=== PATIENT | male | born 1990 | race Caucasian/White ===

== ENCOUNTER 2024-05-11 11:13 | Emergency (ER) | payer MEDICAID, SELFPAY ==
--- NOTE | 2024-05-11 11:16 | XR_ITS ---
WS: [id number] Exam: XR ribs LT mn 3V w CXR1V [id number] Date/Time of Exam: 05/11/2024 11:22 AM Reason For Exam: fall No acute LEFT rib fracture. No pleural or pulmonary reactive changes are noted. The lungs are bilaterally clear and fully expanded. Normal cardiomediastinal silhouette. XR/XR ribs LT mn 3V w CXR1V [id number] IMPRESSION: 1. No acute LEFT rib fracture. 2. No acute cardiopulmonary process noted.
[2024-05-11 12:16] VITALS: BP 133/107; PULSE 87; RESP 16; TEMP 36.8; O2SAT 98; BMI 28.0
--- NOTE | 2024-05-11 12:19 | XRR_ITS ---
PROCEDURE INFORMATION: Exam: XR Left Shoulder Exam date and time: 05/11/2024 12:38 PM Age: 33 years old Clinical indication: Injury or trauma; Fall; Blunt trauma (contusions or hematomas); Shoulder; Left TECHNIQUE: Imaging protocol: Radiologic exam of the left shoulder. Views: 2 or more views. COMPARISON: CR XR ribs LT mn 3V w CXR1V [id number] 05/11/2024 11:36 AM FINDINGS: Bones/joints: Mild osteoarthritis of the left acromioclavicular joint. No acute fracture or dislocation. Soft tissues: Normal. XR/XR shoulder LT min 2V* [id number] IMPRESSION: No acute fracture or dislocation.
[2024-05-11 12:20] VITALS: PULSE 85; O2SAT 96
--- NOTE | 2024-05-11 12:20 | ED_ITS ---
HPI - Fall General: Chief Complaint: Fall Stated Complaint: fall/left side rib pain Time Seen by Provider: 05/11/24 11:36 Source: patient Mode of arrival: ambulatory Limitations: no limitations History of Present Illness: 33-year-old male who states that he is a t work he slipped on ice and fell onto his left side. He states happened just prior arrival states he is having left shoulder pain also some left-sided rib pain and upper back pain. States pain sharp in nature rates it a 7 out of 10 states is worse with palpation and deep breaths. He denies hitting his head denies any neck pain. Associated symptoms-after fall: Reports chest pain; Denies abdominal pain, headache(s) or neck pain Related Data Previous Rx's ?Medication ?Instructions ?Recorded naproxen 500 mg tablet (Naprosyn) 500 mg PO BID PRN pa in #20 tabs 05/11/24 Allergies Allergy/AdvReac Type Severity Reaction Status Date / Time No Known Allergies Allergy Verified 05/11/24 12:19 Review of Systems Const: Denies: fever(s), chills, body aches or change in appetite ENMT: Denies: throat pain or dental pain Card: Reports: chest pain Resp: Denies: dyspnea GI: Denies: abdominal pain, nausea, vomiting or diarrhea Musc: Reports: back pain and extremity pain; Denies: neck pain Skin/Breast: Denies: rash Neuro: Denies: headache(s) Physical Exam Const: COMMON NORMALS: no acute distress, patient oriented x3 and healthy appearing HENMT: COMMON NORMALS: normocephalic and atraumatic HEAD & SCALP: normocephalic and atraumatic Eye: COMMON NORMALS: conjunctivae normal CONJUNCTIVA: Yes conjunctivae normal Neck/C-Spine: COMMON NORMALS: full ROM and supple Chest: COMMONS NORMALS: normal inspection of the chest OTHER: Tenderness noted over left lateral chest Resp: COMMON NORMALS: normal respiratory effort, No retractions, No use of accessory muscles and clear to auscultation bilaterally AUSCULTATION: clear to auscultation bilaterally Cardio: COMMON NORMALS: regular rate, regular rhythm and No murmurs present (Cardio) RATE: regular rate RHYTHM: regular rhythm GI: COMMON NORMALS: Normal to inspection, nondistended, normoactive bowel sounds present, Soft to palpation, non-tender and no masses PALPATION: Yes Soft to palpation Extremity: COMMON NORMALS: full ROM NARRATIVE EXTREMITY EXAM: Tenderness to left shoulder no obvious deformity Neuro: COMMON NORMALS: patient oriented x3, moves all extremities and no focal motor deficits Psych: COMMON NORMALS: mental status grossly normal, Normal thought process present and cooperative THOUGHT PROCESS: Normal thought process present Skin: COMMON NORMALS: no rashes or lesions noted and no wounds GENERAL SKIN EXAM: no rashes or lesions noted Course Vital Signs: Vital signs: Vital Signs Temperature 98.3 F 05/11/24 12:16 Pulse Rate 85 05/11/24 12:20 Respiratory Rate 16 05/11/24 12:16 Blood Pressure 133/107 05/11/24 12:16 Pulse Oximetry 96 05/11/24 12:20 Oxygen Delivery Me thod Room Air 05/11/24 12:20 MDM - Fall Medical Decision Making Patient presents here with chest wall contusion along with shoulder contusion from a fall imaging here shows no fracture she is stable for discharge follow-up PCP return if worsening he understands agrees to plan. Medical Records I reviewed the patient's medical records. Lab Data Radiology Impressions Ribs X-Ray 05/11/24 11:16 IMPRESSION: 1. No acute LEFT rib fracture. 2. No acute cardiopulmonary process noted. Thoracic Spine X-Ray 05/11/24 12:20 IMPRESSION: 1. Negative T-spine study. All radiology interpretation(s) finalized by discharge Discharge Plan Discharge Patient Disposition: Home Clinical Impression: Fall, Chest wall contusion Condition: Stable Prescriptions: New naproxen [Naprosyn] 500 mg tablet 500 mg PO BID PRN (Reason: pain) Qty: 20 0RF Discharge Orders: Discharge ED (Routine); Ordered 05/11/24 Ordered By: Viki Dozier Discharge Diet: Advance as tolerated Discharge Activity: Resume usual activity Patient Instructions: Chest Contusion (ED) Print Language: Tamazight Coding Level of Care Code ED Reliability Technologist for Jeremy Alvarez
--- NOTE | 2024-05-11 12:20 | XR_ITS ---
WS: [id number] Exam: XR thoracic spine 3V* [id number] Date/Time of Exam: 05/11/2024 1:02 PM Reason For Exam: fall No acute fracture. Disc spaces are preserved. No scoliosis. Normal paraspinal soft tissues. XR/XR thoracic spine 3V* [id number] IMPRESSION: 1. Negative T-spine study.
[2024-05-11] MEDS: HYDROcodone-acetaminophen 7.5-325 mg Tablet 1 TAB PO (12:22)
== END 2024-05-11 13:49 | disposition home or self-care (01) ==
PROVIDERS: Emergency Provider Emergency Medicine
DX: S20.219A Contusion of unspecified front wall of thorax, initial encounter (principal); W00.0XXA Fall on same level due to ice and snow, initial encounter
CPT/HCPCS: 71101; 72072; 73030; 99284

== ENCOUNTER 2024-05-16 17:24 | Emergency (ER) | payer MEDICAID, SELFPAY ==
[2024-05-16 17:33] VITALS: BP 123/61; PULSE 95; RESP 14; TEMP 36.7; O2SAT 98; BMI 28.3
--- NOTE | 2024-05-16 17:52 | ED_ITS ---
HPI - Back Pain/Injury General: Chief Complaint: Back Pain/Injury Stated Complaint: sever lower back pain Time Seen by Provider: 05/16/24 17:29 Source: patient Mode of arrival: ambulatory Limitations: no limitations History of Present Illness: Patient is a 33-year-old male who presents the emergency department complaining of lower back pain beginning this morning. Patient states he was at the gym and he was lifting heavier weights than usual, he felt a sudden pop to his lower lumbar spine, this pain has steadily worsened throughout the day he is stating it is an 8/10 and radiates around towards his abdomen. He is not reporting any bowel or bladder incontinence or saddle anesthesia. States he was seen at walk-in clinic earlier and was given 1 dose of muscle relaxer but this did not help. No numbness weakness or tingling reported in his extremities. He does note that the pain also radiates to his right and left gluteal region. He does have a history of IV drug use, stating this was a long time ago. Does not report any fevers, trauma, unexplained weight loss, neurological symptoms, steroid use, or history of cancer. Patient was seen here 5 days ago for a fall, states he had improved after discharge and that this is unrelated. MD elicited complaint: back pain Pertinent past history: IV drug use Onset (ago): hour(s) Timing: constant Severity: severe Pain scale (0-10): 8 Quality: sharp Location: lumbar spine and sacrum Radiation: abdomen, left upper leg and right upper leg Exacerbating factors: movement and walking Relieving factors: none Context: while lifting Associated symptoms: Deny abdominal pain, difficulty walking, fecal incontinence, fever(s) or syncope Treatments prior to arrival: other (Muscle relaxers) Related Data Previous Rx's ?Medication ?Instructions ?Recorded naproxen 500 mg tablet (Naprosyn) 500 mg PO BID PRN pa in #20 tabs 05/11/24 Allergies Allergy/AdvReac Type Severity Reaction Status Date / Time No Known Allergies Allergy Verified 05/11/24 12:19 Review of Systems General: Reports: 10 or more systems reviewed and unremarkable except in HPI and below Const: Reports: other (denies trauma); Denies: fever(s), change in weight or night sweats Card: Denies: chest pain, lightheadedness or syncope Resp: Denies: dyspnea GI: Denies: abdominal pain or fecal incontinence : Denies: urinary incontinence Musc: Reports: back pain; Denies: neck pain or extremity pain Skin/Breast: Denies: rash or skin pain Neuro: Denies: headache(s), numbness in extremities, weakness in extremities, sensory changes, lack of coordination, difficulty walking, frequent falls or involuntary movements Physical Exam Const: COMMON NORMALS: patient oriented x3, no limitations and alert GENERAL APPEARANCE: cooperative ORIENTATION/CONSCIOUSNESS: Yes awake OTHER: Uncomfortable secondary to pain Resp: COMMON NORMALS: normal respiratory effort, No retractions, No use of accessory muscles and clear to auscultation bilaterally AUSCULTATION: clear to auscultation bilaterally Cardio: COMMON NORMALS: regular rate, regular rhythm, S1 normal heart sound present, S2 normal heart sound present, No clicks present (Cardio), No murmurs present (Cardio) and No rub (Cardio) RATE: regular rate RHYTHM: regular rhythm HEART SOUNDS: S1 normal heart sound present and S2 normal heart sound present Back/Pelvis: OTHER: Straight leg raise positive bilaterally. Normal visual examination. Lumbar and sacral tenderness to palpation with no step-off deformity. Mild reproducible tenderness to palpation to the paralumbar muscles bilaterally. Range of motion limited secondary to pain. Extremity: COMMON NORMALS: normal to inspection and full ROM Neuro: COMMON NORMALS: patient oriented x3, moves all extremities, no focal motor deficits, no sensory deficits noted, deep tendon reflexes 2+ bilaterally and gait normal SENSORIUM/ORIENTATION: Yes alert OTHER: L3, L4, L5, and S1 nerve sensations intact. Normal knee jerk and ankle jerk reflexes. Skin: COMMON NORMALS: no rashes or lesions noted GENERAL SKIN EXAM: no rashes or lesions noted Course Vital Signs: Vital signs: Vital Signs Temperature 98.1 F 05/16/24 17:33 Pulse Rate 76 05/16/24 20:00 Respiratory Rate 14 05/16/24 17:33 Blood Pressure 129/68 05/16/24 20:00 Pulse Oximetry 96 05/16/24 20:00 Oxygen Delivery Me thod Room Air 05/16/24 20:00 MDM - Back Pain/Injury Medical Decision Making Patient presented with low back pain after straining at this morning. Was treated with muscle relaxer, had stated that it was not getting better. Was treated with medicine here but states that his pain was still severe. Do not suspect any acute pathology with the spine, but being that his pain was worse ordered CT that was normal. Neurologically was intact there were no red flag symptoms with history or exam. Ultimately this seems to be a strain however continues muscle laxer as he was prescribed with other conservative therapies. He does note some improvement after the CT and general return precautions given. Labs Radiology Impressions Lumbar Spine CT 05/16/24 18:43 IMPRESSION: No acute findings. All radiology interpretation(s) finalized by discharge Discharge Plan Discharge Patient Disposition: Home Clinical Impression: Low back strain Qualifiers: Encounter type: initial encounter Qualified Code(s): S39.012A - Strain of muscle, fascia and tendon of lower back, initial encounter Condition: Stable Prescriptions: No Action naproxen [Naprosyn] 500 mg tablet 500 mg PO BID PRN (Reason: pain) Qty: 20 0RF Discharge Orders: Discharge ED (Routine); Ordered 05/16/24 Ordered By: Tarun Vaz Patient Instructions: Low Back Strain (ED) Activity Restrictions/Additional Instructions: Continue taking your muscle relaxers. NSAIDs and Tylenol. Gentle range of motion exercises as tolerated. Apply heat to your low back. No heavy lifting while in pain. Follow-up with primary care. Print Language: Turkmen Coding Level of Care Code ED Windows Application Administrator for Jeremy Alvarez
[2024-05-16 18:00] VITALS: BP 130/58; PULSE 94; O2SAT 96
[2024-05-16] MEDS: dexamethasone 10 mg/mL INJ IM (18:03)
[2024-05-16] MEDS: ketorolac 60 mg/2 mL INJ IM (18:03)
[2024-05-16] MEDS: orphenadrine 30 mg/mL Inj 2 mL 60 MG IM (18:03)
--- NOTE | 2024-05-16 18:43 | CTR_ITS ---
PROCEDURE INFORMATION: Exam: CT Lumbar Spine Without Contrast Exam date and time: 05/16/2024 7:41 PM Age: 33 years old Clinical indication: Injury or trauma; Other: Lifting weights; Bleeding/hemorrhage; Additional info: Severe low back pain, no change after meds TECHNIQUE: Imaging protocol: Computed tomography of the lumbar spine without contrast. Radiation optimization: All CT scans at this facility use at least one of these dose optimization techniques: automated exposure control; mA and/or kV adjustment per patient size (includes targeted exams where dose is matched to clinical indication); or iterative reconstruction. COMPARISON: CR XR thoracic spine 3V* [id number] 05/11/2024 12:38 PM RADIATION DOSE METRICS: Total DLP (mGy-cm): 663.8 FINDINGS: Bones/joints: No acute fracture. Normal alignment. No significant disc bulge or herniation. No severe spinal canal stenosis. No significant neural foraminal narrowing. Soft tissues: Unremarkable. CT/CT lumbar spine wo con* [id number] IMPRESSION: No acute findings.
[2024-05-16 20:00] VITALS: BP 129/68; PULSE 76; O2SAT 96
[2024-05-16 20:48] VITALS: BP 142/65; PULSE 81; O2SAT 96
== END 2024-05-16 20:49 | disposition home or self-care (01) ==
PROVIDERS: Emergency Provider Physician Assistant
DX: S39.012A Strain of muscle, fascia and tendon of lower back, initial encounter (principal); X50.0XXA Overexertion from strenuous movement or load, initial encounter
CPT/HCPCS: 72131; 96372; 99284; J1100; J1885; J2360